=== PATIENT | female | born 1955 | race Caucasian/White ===

== ENCOUNTER 2024-06-14 00:34 | Day surgery (SDC) | payer MEDICARE, SELFPAY ==
[2024-05-24 13:31] VITALS: BMI 30.4
[2024-06-14 10:16] VITALS: BP 159/81; PULSE 65; RESP 16; TEMP 36.1; O2SAT 99; BMI 28.3
[2024-06-14] MEDS: LACTATED RINGERS 1,000 ML 150 ML IV CONT (10:26)
--- NOTE | 2024-06-14 10:54 | PM.HPGS ---
History of Present Illness History of Present Illness Consent: Risks, benefits, and alternatives have been discussed and questions answered. Patient agrees to proceed with procedure. Chief complaint: Personal history colon polyp Narrative: Laura Ruffin is a 69 year old female with colon polyp in 2018 Review of Systems Review of Systems: All systems reviewed & are unremarkable except as noted in HPI and below PMFSH Past Medical History Medical History (Updated 06/14/24 @ 10:54 by Jamie Holley MD) Colon polyp Social History Social History Smoking status: Current every day smoker Alcohol intake: former Substance use: current Substance use type: marijuana Last use: 05/24/24 Living arrangements: with family Meds Home Medications and Allergies Home Medications Medication Instructions Recorded Confirmed Type atorvastatin 10 mg tablet 10 mg PO DAILY 05/24/24 05/24/24 History fluoxetine 20 mg capsule 20 mg PO DAILY 05/24/24 05/24/24 History fluoxetine 40 mg capsule 40 mg PO DAILY 05/24/24 05/24/24 History hydrochlorothiazide 25 mg tablet 25 mg PO DAILY 05/24/24 05/24/24 History levothyroxine 88 mcg tablet 88 mcg PO DAILY 05/24/24 05/24/24 History linaclotide 72 mcg capsule 72 mcg PO DAILY 05/24/24 05/24/24 History (Linzess) meloxicam 7.5 mg tablet 7.5 mg PO DAILY 05/24/24 05/24/24 History primidone 50 mg tablet 50 mg PO HS 05/24/24 05/24/24 History propranolol 80 mg tablet 80 mg PO BID 05/24/24 05/24/24 History trazodone 100 mg tablet 100 mg PO HS 05/24/24 05/24/24 History Allergies Allergy/AdvReac Type Severity Reaction Status Date / Time lisinopril Allergy Swelling Verified 06/14/24 10:14 of Lip/Tongue/Throat Vital Signs Vital Signs - 24 hr 06/14/24 10:16 Temperature 97.0 F L Pulse Rate 65 Respiratory Rate 16 Blood Pressure 159/81 H Pulse Oximetry 99 Oxygen Delivery Room Air Exam Const: General: comfortable and no acute distress HENMT: Face/Nose/Sinus: Normal nares present Eyes: General: appearance normal, both eyes and all related structures Neck: Neck: no JVD Resp: Auscultation: clear to auscultation bilaterally Cardio: Rate: regular rate Rhythm: regular rhythm GI: Inspection: non-distended GI Palp: Yes Soft to palpation Skin: General skin exam: normal color Neuro: General: gait normal Speech: normal speech Extrem: General: normal to inspection Psych: Mental Status: mental status grossly normal Assessment and Plan Assessment and plan (1) Colon polyp: Code(s): K63.5 - Polyp of colon Status: Acute Assessment and Plan: colonoscopy
[2024-06-14 11:14] VITALS: BP 108/63; PULSE 63; RESP 16; O2SAT 99
--- NOTE | 2024-06-14 11:15 | WPDANESEPPF ---
Anes - Initial Pre Proc Eval Procedure: Operation Date: 06/14/24 11:30 Proposed Procedures p Colonoscopy - Jamie Holley MD Date/Time: 06/14/24 11:15 Surgeon: Jamie Holley MD Pre Op Diagnosis: Personal history colon polyp Patient Data Age: 69 Gender: F Height: 1.55 m Weight: 68 kg Last Vital Signs Temp 97.0 F L 06/14/24 10:16 Pulse 65 06/14/24 10:16 Resp 16 06/14/24 10:16 BP 159/81 H 06/14/24 10:16 Pulse Ox 99 06/14/24 10:16 O2 Del Method Room Air 06/14/24 10:16 Allergies Allergy/AdvReac Type Severity Reaction Status Date / Time lisinopril Allergy Swelling Verified 06/14/24 10:14 of Lip/Tongue/Throat Home Medications Medication Instructions Recorded Confirmed Type atorvastatin 10 mg tablet 10 mg PO DAILY 05/24/24 05/24/24 History fluoxetine 20 mg capsule 20 mg PO DAILY 05/24/24 05/24/24 History fluoxetine 40 mg capsule 40 mg PO DAILY 05/24/24 05/24/24 History hydrochlorothiazide 25 mg tablet 25 mg PO DAILY 05/24/24 05/24/24 History levothyroxine 88 mcg tablet 88 mcg PO DAILY 05/24/24 05/24/24 History linaclotide 72 mcg capsule 72 mcg PO DAILY 05/24/24 05/24/24 History (Linzess) meloxicam 7.5 mg tablet 7.5 mg PO DAILY 05/24/24 05/24/24 History primidone 50 mg tablet 50 mg PO HS 05/24/24 05/24/24 History propranolol 80 mg tablet 80 mg PO BID 05/24/24 05/24/24 History trazodone 100 mg tablet 100 mg PO HS 05/24/24 05/24/24 History Patient hx anesthesia problems: none Family hx anesthesia problems: none Results Review: All pre-operative results and documents have been reviewed as part of the pre-operative evaluation. [facility] Past Medical History Medical History (Updated 06/14/24 @ 10:54 by Jamie Holley MD) Colon polyp Social History Social History Smoking status: Current every day smoker Alcohol intake: former Substance use: current Substance use type: marijuana Last use: 05/24/24 Living arrangements: with family Avinash Ace Final PreProcedure Day of Procedure 06/14/24 11:15 Patient weight: normal Heart: regular rate and rhythm Lungs: clear to auscultation Airway: Mallampati scale class II Neurological: alert and oriented Last oral intake: >/= 8 hours ASA classification: III Emergent: no Anesthetic plan: proceed Anesthesia type and monitoring: general GIVS and standard monitoring Results Review: All pre-operative results and documents have been reviewed as part of the pre-operative evaluation. Informed Consent: The patient's anesthetic plan and its attendant risks and benefits were discussed with the patient/family/POA. Questions were solicited and answers provided to the satisfaction of the patient/family/POA.
[2024-06-14 11:24] VITALS: BP 104/67; PULSE 64; RESP 16; O2SAT 100
[2024-06-14 11:34] VITALS: BP 128/65; PULSE 65; RESP 18; O2SAT 100
== END 2024-06-14 11:40 | disposition home or self-care (01) ==
PROVIDERS: PCP Family Medicine; Referring Provider Family Medicine; Visit Provider Internal Medicine Gastroenterology
PROC: 0DJD8ZZ Inspection of Lower Intestinal Tract, Via Natural or Artificial Opening Endoscopic (ICD-10-PCS; CPT 45378; principal; 2024-06-14 11:30)
DX: Z12.11 Encounter for screening for malignant neoplasm of colon (principal); D12.2 Benign neoplasm of ascending colon; K63.5 Polyp of colon; K64.8 Other hemorrhoids; K57.30 Diverticulosis of large intestine without perforation or abscess without bleeding; F17.210 Nicotine dependence, cigarettes, uncomplicated; F12.90 Cannabis use, unspecified, uncomplicated; Z86.0100 Personal history of colon polyps, unspecified
CPT/HCPCS: 45385; 88305; J2003; J2704; J7120

== ENCOUNTER 2024-12-22 09:36 | Outpatient (CLI) | payer MEDICARE, SELFPAY ==
--- NOTE | ~2024-12-22 | XR_ITS ---
AP and oblique views of the SI joints Clinical history left hip pain FINDINGS: Bilateral SI joints and bilateral hip joints are intact. No degenerative or erosive change evident. No soft tissue abnormality evident. No acute fracture. IMPRESSION: No significant abnormality seen. Reviewed, dictated and finalized at [facility].
--- NOTE | ~2024-12-22 | XR_ITS ---
AP view of the pelvis and AP and lateral views of the bilateral hip Clinical history: Pain Findings: No acute fracture or dislocation is seen. Osseous alignment is anatomic. Bilateral hip and SI joint spaces are preserved. Soft tissues are unremarkable. Impression: No significant abnormality is seen. Reviewed, dictated and finalized at location . Impression: No significant abnormality is seen.
== END 2024-12-22 09:37 | disposition home or self-care (01) ==
PROVIDERS: PCP Family Medicine; Visit Provider Family Medicine
DX: M53.3 Sacrococcygeal disorders, not elsewhere classified (principal); M25.552 Pain in left hip
CPT/HCPCS: 72202; 73521

== ENCOUNTER 2025-05-26 14:47 | Outpatient (CLI) | payer MEDICARE, SELFPAY ==
--- NOTE | ~2025-05-26 | MM_ITS ---
EXAMINATION: MM screening leandro BI w kj HISTORY: Screening TECHNIQUE: Craniocaudal and mediolateral oblique 3-D tomosynthesis images were obtained and synthetic 2-D images were generated. CAD analysis was submitted and interpreted. COMPARISON: No prior mammogram is available for comparison at this institution. BREAST PARENCHYMAL COMPOSITION: There are scattered areas of fibroglandular density. FINDINGS: Focal asymmetry in the right breast at the 12:00 position middle depth with a few indeterminate calcifications. Focal asymmetry in the upper-outer quadrant of the left breast, middle to posterior depth. IMPRESSION: 1.Focal asymmetry in the right breast at the 12:00 position middle depth with a few indeterminate calcifications. The study is incomplete. A diagnostic mammogram and a diagnostic ultrasound are recommended. 2.Focal asymmetry in the upper-outer quadrant of the left breast, middle to posterior depth. The study is incomplete. A diagnostic mammogram and a diagnostic ultrasound are recommended. BI-RADS 0: Incomplete-Need additional imaging evaluation. Reviewed, dictated and finalized at location [facility]. IMPRESSION: 1.Focal asymmetry in the right breast at the 12:00 position middle depth with a few indeterminate calcifications. The study is incomplete. A diagnostic mammog vasu and a diagnostic ultrasound are recommended. 2.Focal asymmetry in the upper-outer quadrant of the left breast, middle to pos terior depth. The study is incomplete. A diagnostic mammogram and a diagnostic ultrasound are recommended. BI-RADS 0: Incomplete-Need additional imaging evaluation.
--- OUTSIDE RECORDS SUMMARY | 2025-05-26 14:51 | XMS_ITS | Clinical Summary ---
Author Organization [facility] Address [address] [place] [id number] Care Team Providers Care Hydropress Operator Name Role Phone Unavailable Primary Care Provider Unavailabl e Allergies Active Allergy Reactions Criticality Noted Date Comments Amish Inhibitors Angioedema High 08/11/2018 Lisinopril Unknown Low 08/11/2018 Medications naproxen sodium (ALEVE) 220 mg Tablet Take 220 mg by mouth every 4 hours as needed for Pain, Moderate. Active hydrOXYzine pamoate (VISTARIL) 25 mg capsule Take 1 Capsule (25 mg) by mouth 3 times daily as needed for Anxiety. 90 Capsule 1 0 Active FLUoxetine (PROzac) 20 mg capsuleIndication s:Moderate episode of recurrent major depressive disorder (CMS/HCC) Take 1 Capsule (20 mg) by mouth daily. Take in addition to 40 mg daily for 60 mg total daily. 90 Capsule 1 1 Active atorvastatin (LIPITOR) 10 mg tabletIndications :Dyslipidemia, goal LDL below 100 Take 1 Tablet (10 mg) by mouth daily. 90 Tablet 3 1 Active propranoloL (INDERAL) 80 mg tabletIndications :Familial tremor,Benign hypertension TAKE 1 AND 1/2 TABLETS BY MOUTH TWICE DAILY 270 Tablet 1 1 Active levothyroxine 88 mcg tablet TAKE 1 TABLET BY MOUTH DAILY 90 Tablet 3 1 Active HYDROCHLOROTHIAZI DE 25 mg tablet TAKE 1 TABLET BY MOUTH DAILY 90 Tablet 3 1 Active traZODone (DESYREL) 100 mg tablet TAKE 1 TABLET BY MOUTH AT BEDTIME 90 Tablet 3 1 Active primidone (MYSOLINE) 50 mg tablet TAKE 1 TABLET BY MOUTH DAILY AT BEDTIME 90 Tablet 3 1 Active FLUoxetine (PROzac) 40 mg capsuleIndication s:Recurrent major depressive disorder, in remission TAKE 1 CAPSULE BY MOUTH DAILY 90 Capsule 3 1 Active Active Problems Problem Noted Date Diagnosed Date Benign hypertension 08/11/2018 Hypothyroidism 08/11/2018 Familial tremor 08/11/2018 Sleep disturbances 08/11/2018 Recurrent major depressive disorder, in remissio n 08/11/2018 Tobacco abuse 08/11/2018 Marijuana use 08/11/2018 Hyperlipidemia 08/11/2018 History of colon polyps 08/11/2018 Overview (08/11/2018): C-scope in 2015-[place], rescope recs 10 years Status post right breast lumpectomy 08/11/2018 Immunizations Immunization Administration Dates Next Due (PNEUMOVAX 23)(50 YRS UP) PN EUMOCOCCAL POLYSACCHARIDE (PPV23) 0.5 ML, IM 03/28/2021 INFLUENZA VACCINE QUADRIVALENT 3 YR UP PF IM INFLUENZA VACCINE QUADRIVALENT 6 MOS UP PF IM Family History Medical History Relation Name Comments Heart Disease Brother 1 Healthy Brother 2 Cancer Brother 3 Other Father Other Mother Healthy Sister Relation Name Status Comments Brother 1 Brother 2 Brother 3 Father Mother Sister Social History Tobacco Use Types Packs/Day Years Used Date Smoking Tobacco: Former Cigarettes 1 5 0 10/11/2014 - 10/11/2019 Smokeless Tobacco: Never Tobacco Cessation:Counseling Given: Yes Alcohol Use Standard Drinks/Week Comments Yes 0 (1 standard drink = 0.6 oz pur e alcohol) socially Financial Resource Strain Answer Date R ecorded How hard is it for you to pa y for the very basics like food, housing, medical care, and heating? Not hard at all 03/07/2021 Food Insecurity Answer Date Recorded In the past 12 months, have you worried that your food would run out before you had money to buy more? Never true 03/07/2021 In the past 12 months, did y ou run out of food and didn't have money to buy more? Never true 03/07/2021 Transportation Needs Answer Date Record ed In the past 12 months, has l ack of transportation kept you from medical appointments or from getting medications? No 03/07/2021 Lack of Transportation (Non-Medical) Not on file 03/07/2021 Comments No Sex and Gender Information Value Date Recorded Sex Assigned at Not on file Legal Sex Female 10:47 PM CDT Gender Identity Not on file Sexual Orientation Not on file Last Filed Vital Signs Vital Sign Reading Time Taken Comments Blood Pressure 110/70 03/28/2021 10:22 AM CDT Pulse 60 03/28/2021 10:22 AM CDT Temperature 36.4 C (97.6 F) 03/28/2021 10:22 AM CDT Respiratory Rate 14 08/14/2020 8:56 AM [employer] Oxygen Saturation 98% 03/28/2021 10:22 AM CDT Inhaled Oxygen Concentration - - Weight 73.5 kg (162 lb) 03/28/2021 10:22 AM CDT Height 157.5 cm (5' 2) 03/28/2021 10:22 AM CDT Body Mass Index 29.63 03/28/2021 10:22 AM CDT Plan of Treatment Health Maintenance Due Date Last Done Comments DTAP/TDAP/TD VACCINES (1 - Tdap) 1975 BREAST CANCER SCREENING 1996 COLORECTAL SCREENING 2001 Colorectal Cancer Screening 2001 FIT-DNA Q 3 years 2001 FIT/FOBT Q 1 year 2001 Flex Sig/CT Colonography Q 5 years 2001 ZOSTER VACCINE (1 of 2) 2006 OSTEOPOROSIS SCREENING 2021 PNEUMOCOCCAL VACCINE 50+ YEA RS (2 of 2 - PCV) 03/28/2022 03/28/2021 INFLUENZA VACCINE (#1) 2025 07/03/2020, 2018 RSV VACCINE (60+ or ) (1 - 1-dose 75+ series) 2031 Insurance [facility] [id number] [place] [id number]
== END 2025-05-26 14:48 | disposition home or self-care (01) ==
LOC: ANHFOHIMG 14:49
PROVIDERS: PCP Family Medicine; Visit Provider Family Medicine
DX: Z12.31 Encounter for screening mammogram for malignant neoplasm of breast (principal); R92.8 Other abnormal and inconclusive findings on diagnostic imaging of breast
CPT/HCPCS: 77063; 77067